=== PATIENT | male | born 1985 | race Caucasian/White ===

== ENCOUNTER 2024-09-30 17:41 | Emergency (ER) | payer OTHER ==
[~2024-09-30] VITALS: Ht 172.7 cm; Wt 88.0 kg
[2024-09-30] MEDS ORDERED: SOD PHOSPHATE/SOD BIPHOSPHATE 132 ML BTL PR ONE (20:45)
[2024-09-30] MEDS ORDERED: LACTULOSE 20 GM/30 ML CUP PO ONE (20:45)
[2024-09-30 21:52] LABS: BASOPHILS 0.3 % (0-2); EOSINOPHILS 0.6 % (0-6); HEMOGLOBIN 15.1 g/dL (12.0-18.0); LYMPHOCYTES 16.9 % (24-44); MCH 27.9 (27-36); MCHC 36.1 g/dl (30-36); MCV 77.4 fl (81-99); MONOCYTES 4.7 % (0-12); NEUTROPHILS 77.5 % (39-80); PLATELET COUNT 247 K/uL (140-440); RBC 5.42 M/ul (4.3-5.7); RDW 14.2 (10.5-15.0)
[2024-09-30 22:11] LABS: ALBUMIN 3.8 g/dL (3.4-5.0); ALBUMIN/GLOBULIN RATIO 0.97 (1.1-2.4); ANION GAP 9.6 (7-21); BILIRUBIN, TOTAL 0.9 mg/dL (0.2-1.0); BUN/CREATININE RATIO 15.85 (6.0-28.6); CALCIUM 9.4 mg/dL (8.5-10.1); CREATININE, SERUM 0.82 mg/dL (0.70-1.30); POTASSIUM 3.6 mmol/L (3.5-5.1); PROTEIN, TOTAL 7.7 g/dL (6.4-8.2)
[2024-09-30 23:53] VITALS: BP 123/73
== END 2024-09-30 23:40 | disposition other institution, planned readmission (95) ==
LOC: ED 17:41
PROVIDERS: Emergency Medicine
DX: T18.5XXA Foreign body in anus and rectum, initial encounter (principal); W44.8XXA Other foreign body entering into or through a natural orifice, initial encounter
CPT/HCPCS: 36415; 74018; 74176; 80053; 85025; 99284-25